=== PATIENT | male | born 1940 | race Hispanic/Latino ===

== ENCOUNTER 2016-08-29 08:42 | Outpatient (CLI) | payer MEDICARE ==
--- NOTE | 2016-08-29 10:05 | Cat Scan Report ---
CT HEAD WITHOUT CONTRAST: 08/29/16 08:42:00 CLINICAL: Headache. History of right cerebellar hemorrhage. TECHNIQUE: 2.5-mm noncontrast scans. COMPARISON:06/26/14 FINDINGS: Stable right cerebellar encephalomalacia and status post right occipital craniotomy. Stable bilateral occipital periventricular white matter hypodensities. The ventricles and sulci are normal for age and unchanged. No new abnormal density. No mass or mass effect. No hemorrhage, edema or extra-axial collection. The sinuses are clear. Normal orbits and soft tissues. No bone lesions. IMPRESSION: 1. No acute change. 2. 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 3. Status post right occipital craniotomy with stable right cerebellar encephalomalacia at site of previous hemorrhage.
--- NOTE | 2016-08-29 11:55 | Cat Scan Report ---
CT NECK WITHOUT CONTRAST: 08/29/16 08:42:00 CLINICAL: Headache. No comparison. TECHNIQUE: Volumetric acquisition and axial 1.25 mm scan reconstructionswithout contrast. Sagittal and coronal reformats were performed. FINDINGS: Normal noncontrast study of the mucosal structures of the nasopharynx, oropharynx, hypopharynx and larynx. No mass or lymphadenopathy of the neck. Small lymph nodes throughout the neck. Normal salivary glands. The parapharyngeal spaces are normal. Normal thyroid. The upper lung robert are clear. Status post midline laminectomy and fusion of the posterior elements with wires from C5-C7. Normal vertebral body alignment. However, the vertebral bodies from C6 and above are more narrow in the AP dimension than the more inferior vertebral bodies so the posterior margins are not alignment at C6-7. C3-4 degenerative disc disease with loss of the disc space and large anterior posterior osteophytes. Moderate left C3-4 neural foraminal stenosis related to the osteophyte. IMPRESSION: Degenerative disc disease at C3-4 and status post laminectomy and cervical fusion from C3-5 through C6-7. Moderate neural foraminal stenosis on the left at C3-4 secondary osteophyte. Normal soft tissues of the neck.
== END 2016-08-29 08:43 | disposition home or self-care (01) ==
LOC: SPVIMAG 08:42
PROVIDERS: ATTEND Internal Medicine Hematology & Oncology
DX: G93.89 Other specified disorders of brain (principal); M48.02 Spinal stenosis, cervical region; M43.22 Fusion of spine, cervical region; M50.31 Other cervical disc degeneration, high cervical region; M25.78 Osteophyte, vertebrae
CPT/HCPCS: 70450; 70490

== ENCOUNTER 2021-09-24 08:36 | Emergency (ER) | payer MEDICARE ==
--- NOTE | 2021-09-24 11:33 | XRay Report ---
LEFT SHOULDER 1 VIEW INDICATION / CLINICAL INFORMATION: Dislocation of left shoulder. COMPARISON: One view of the chest from 04/08/2013. FINDINGS: BONES and JOINT(S): There is anterior dislocation of the glenohumeral joint. No acute displaced fract ure. There is severe left AC joint space loss with osteophyte formation. SOFT TISSUES: No significant abnormality. ADDITIONAL FINDINGS: None. IMPRESSION: 1. Anterior dislocation of the left shoulder. Post reduction radiographs are recommended. 2. Additional findings as above. Signer Name: Ollie Maguire MD Signed: 09/24/2021 11:28 AM Workstation Name: [id number]
[2021-09-24 11:35] LABS: Basophils % (Auto) 0.5 % (0.0-1.8); Eosinophils # (Auto) 0.1 K/mm3 (0.0-0.4); Eosinophils % (Auto) 0.9 % (0.0-4.3); Hematocrit 42.5 % (35.5-45.6); Lymphocytes # (Auto) 1.3 K/mm3 (1.2-5.4); Lymphocytes % (Auto) 16.5 % (13.4-35.0); Mean Corpuscular HGB Conc 33 % (32-34); Mean Corpuscular Volume 101 fl (84-94); Monocytes # (Auto) 0.5 K/mm3 (0.0-0.8); Platelet Count 306 K/mm3 (140-440); Red Blood Count 4.23 M/mm3 (3.65-5.03); Red Cell Distribution Width 13.3 % (13.2-15.2)
[2021-09-24] MEDS ORDERED: MORPHINE 4 MG/1 ML INJ IV ONE (11:41)
[2021-09-24] MEDS ORDERED: ONDANSETRON 4 MG/2 ML INJ IV ONE (11:41)
--- NOTE | 2021-09-24 11:45 | Emergency Department Report ---
HPI - General Chief Complaint: Extremity Injury, Upper Time Seen by Provider: 09/24/21 10:03 - HPI HPI: 2 days prior to arrival the patient lost his balance and fell on an outstretched nondominant left hand and since then has been having moderate sharp left shoulder pain. He is not able to move the shoulder very well and the pain gets worse whenever he tries to move it. He denies any left upper extremity weakness numbness. He also denies any nausea vomiting fever chills focal weakness or any other associated symptoms. The patient has a history of atrial fibrillation does not take any medicines for it. He also has had a prior stroke that left h im with an imbalance problem. ED Past Medical Hx - Past Medical History Hx Hypertension: Yes (2013/ pt denies) Hx GERD: Yes Hx Arthritis: Yes Hx Headaches / Migraines: Yes Additional medical history: Hemorraghic Stroke, Pt was intubated ; atrial fibrillation - Surgical History Past Surgical History?: No Additional Surgical History: Pt had brain surgery - Social History Smoking Status: Never Smoker Substance Use Type: None - Medications Home Medications: Home Medications Medication Instructions Recorded Confirmed Last Taken Type Calcium Carbonate/Vitamin D3 1 tab PO DAILY 11/27/13 06/26/14 06/26/14 History [Centrum Pro Nutrients Tablet] Famotidine 20 mg PO DAILY 11/27/13 06/26/14 06/26/14 History Folic Acid 1 tab PO DAILY 11/27/13 06/26/14 06/26/14 History amLODIPine 10 mg PO DAILY 11/27/13 06/26/14 06/26/14 History Acetaminophen [Acetaminophen TAB] 500 mg PO Q4HR PRN #30 tablet 06/27/14 Unknown Rx Metoprolol [Lopressor TAB] 25 mg PO BID 30 Days #60 tablet 09/24/21 Unknown Rx Naproxen [Naprosyn] 500 mg PO BID 10 Days #20 tablet 09/24/21 Unknown Rx ED Review of Systems ROS: Stated complaint: FALL/LEFT ARM INJURY Other details as noted in HPI Comment: All other systems reviewed and negative Physical Exam - Physical Exam Vital Signs: Vital Signs 09/24/21 09/24/21 09/24/21 09:26 09:46 09:49 Temperature 98.0 F Pulse Rate 125 H 114 H Respiratory 18 Rate Blood Pressure 155/101 Blood Pressure 155/89 [Right] O2 Sat by Pulse 96 98 97 Oximetry 09/24/21 09/24/21 09/24/21 10:00 10:08 10:16 Temperature Pulse Rate Respiratory 18 Rate Blood Pressure 159/93 159/93 Blood Pressure [Right] O2 Sat by Pulse 96 97 96 Oximetry 09/24/21 10:30 Temperature Pulse Rate Respiratory Rate Blood Pressure 150/93 Blood Pressure [Right] O2 Sat by Pulse 96 Oximetry Physical Exam: Physical Exam Constitutional: General: No acute distress. Appearance: No diaphoresis. HENT: Head: Normocephalic. Eyes: Pupils: Pupils are equal, round, and reactive to light. Neck: Musculoskeletal: Normal range of motion. Cardiovascular: Rate and Rhythm: Normal rate and regular rhythm. Pulses: Intact distal pulses. Heart sounds: Normal heart sounds. No murmur. Pulmonary: Effort: No respiratory distress. Breath sounds: No wheezing or rales. Chest: Chest wall: No tenderness. Abdominal: General: There is no distension. Palpations: There is no mass. Tenderness: There is no abdominal tenderness. There is no guarding or rebound. Musculoskeletal: There is a visible deformity on the left shoulder consistent with an anterior left humeral dislocation. He is distally neurovascularly intact Skin: General: Skin is warm and dry. Neurological: Mental Status: Alert and oriented to person, place, and time. Psychiatric: Mood and Affect: Mood and affect normal. Cognition and Memory: Memory normal. Judgment: Judgment normal. ED Course Vital Signs 09/24/21 09/24/21 09/24/21 09:26 09:46 09:49 Temperature 98.0 F Pulse Rate 125 H 114 H Respiratory 18 Rate Blood Pressure 155/101 Blood Pressure 155/89 [Right] O2 Sat by Pulse 96 98 97 Oximetry 09/24/21 09/24/21 09/24/21 10:00 10:08 10:16 Temperature Pulse Rate Respiratory 18 Rate Blood Pressure 159/93 159/93 Blood Pressure [Right] O2 Sat by Pulse 96 97 96 Oximetry 09/24/21 10:30 Temperature Pulse Rate Respiratory Rate Blood Pressure 150/93 Blood Pressure [Right] O2 Sat by Pulse 96 Oximetry - Reevaluation(s) Reevaluation #1: 09/24/21 12:06 EKG done interpreted at 1055 shows a rate of 122, tachycardia. The rhythm is atrial fibrillation with rapid ventricular response. There are some T wave flattening in the leads V5 V6 Reevaluation #2: 09/24/21 14:33 Conscious sedation note: Indication: Moderate sedation for left shoulder anterior dislocation closed reduction. ASA class: 3 Mallampati score: 2 Medical record and history and physical exam done. I personally in a controlled environment with respiratory in the room, suction ready and the patient using 2 L nasal cannula pushed 7 mg of etomidate IV obtaining an adequate level of moderate sedation with no change in the patient's respiratory status. Total intraservice time: 7 minutes excluding the closed reduction. Reevaluation #3: 09/24/21 14:35 I was able to reduce the patient's shoulder without any problems. He says that he has had atrial fibrillation for a long time and does not take any medications. I will put him on an oral beta-kalyn. He declined to stay so he is going to go AGAINST MEDICAL ADVICE. The reason he gave blood because he is got a dog he can take care of. He verbalized understanding of the risk of stroke, permanent disability or any other unforeseen consequences of leaving AGAINST MEDICAL ADVICE. 09/24/21 14:36 09/24/21 14:39 - Orthopedic Joint Reduction Joint #1 Consent Obtained: verbal consent, written consent Time Out Performed: Yes Side: left Joint Reduction Location: shoulder Analgesia: moderate sedation Shoulder Technique Used (if applicable): traction/counter-traction Technique Used: traction/counter-traction Post-Reduction Neuro Exam: intact Post-Reduction Vascular Exam: intact Post Reduction X-Ray Obtained: Yes Post Reduction X-Ray Results: reduced Splint Applied: Yes Patient Tolerated Procedure: well ED Medical Decision Making - Lab Data Result diagrams: 09/24/21 11:11 09/24/21 11:11 Critical care attestation.: If time is entered above; I have spent that time in minutes in the direct care of this critically ill patient, excluding procedure time. ED Disposition Clinical Impression: Anterior dislocation of left shoulder, Atrial fibrillation with rapid ventricular response Disposition: AGAINST MEDICAL ADVICE Is pt being admited?: No Does the pt Need Aspirin: No Condition: Stable Instructions: Shoulder Dislocation, Atrial Fibrillation Prescriptions: Metoprolol [Lopressor TAB] 25 mg PO BID 30 Days #60 tablet Naproxen [Naprosyn] 500 mg PO BID 10 Days #20 tablet Referrals: RAVINDER AGGARWAL MD [Primary Care Provider] - 3-5 Days Print Language: KIS[place]ILI
--- NOTE | 2021-09-24 11:47 | Electrocardiograph Report ---
[facility] Test Date: 2021-09-24 Test Time: 10:55:08 Pat Name: SHAY MCKAY Department: Room: Gender: M Store Sales Consultant: : [id number] Requested By: ETHAN ENRIQUEZ Order Number: [id number] Reading MD: Raheel Camacho Measurements Intervals [place] Rate: 122 P: FL: QRS: 42 QRSD: 82 T: 32 QT: 325 QTc: 463 Interpretive Statements Atrial fibrillation Low voltage, precordial leads No previous ECG available for comparison Electronically Signed On 09-24-2021 11:47:18 EDT by Raheel Camacho
[2021-09-24 11:53] LABS: Alanine Aminotransferase 15 units/L (7-56); Albumin 4.1 g/dL (3.9-5); Blood Urea Nitrogen 14 mg/dL (9-20); Calcium 9.2 mg/dL (8.4-10.2); Hemolysis Index 29
[2021-09-24 11:55] LABS: BUN/Creatinine Ratio 20
[2021-09-24] MEDS ORDERED: ETOMIDATE 20 MG/10 ML INJ IV ONE (12:42)
[2021-09-24] MEDS ORDERED: METOPROLOL TARTRATE 50 MG TAB PO ONE (14:39)
--- NOTE | 2021-09-24 14:53 | XRay Report ---
LEFT SHOULDER 1 VIEW INDICATION / CLINICAL INFORMATION: Status post reduction of left shoulder. COMPARISON: Left shoulder radiograph performed earlier today. FINDINGS: BONES and JOINT(S): The glenohumeral joint has been reduced with expected alignment based on this sin gle submitted image. No new acute findings. SOFT TISSUES: No significant abnormality. ADDITIONAL FINDINGS: None. IMPRESSION: Interval reduction of the left shoulder without new acute findings. Signer Name: Ollie Maguire MD Signed: 09/24/2021 2:49 PM Workstation Name: [id number]
[2021-09-24 17:03] VITALS: BP 163/75
== END 2021-09-24 15:30 | disposition left against medical advice (07) ==
LOC: ED 08:36
DX: S43.084A Other dislocation of right shoulder joint, initial encounter (principal); I48.20 Chronic atrial fibrillation, unspecified; I10 Essential (primary) hypertension; K21.9 Gastro-esophageal reflux disease without esophagitis; M19.90 Unspecified osteoarthritis, unspecified site; G43.909 Migraine, unspecified, not intractable, without status migrainosus; Z88.5 Allergy status to narcotic agent; Z79.899 Other long term (current) drug therapy; W18.39XA Other fall on same level, initial encounter; Y93.89 Activity, other specified; Y92.89 Other specified places as the place of occurrence of the external cause; Y99.8 Other external cause status
CPT/HCPCS: 23650; 36415; 73020; 80053; 84484; 85025; 93005; 96374; 96375; 99285; J2270; J2405; J3490; 99284

== ENCOUNTER 2021-09-29 08:34 | Outpatient (CLI) | payer MEDICARE ==
--- NOTE | 2021-09-29 10:21 | XRay Report ---
AC JOINTS BILATERAL 2 VIEWS INDICATION: DISLOCATED LEFT AC JOINT S43.004A. COMPARISON: Left shoulder films dated 09/24/2021 IMPRESSION: There is normal alignment at both AC joints. No evidence for fracture, dislocation or li gamentous injury. Mild to moderate osteoarthritic changes are identified at both AC joints, slightly more so on the left side. There is normal articulation at the glenohumeral joints. Signer Name: Angel Carlson Jr, MD Signed: 09/29/2021 10:17 AM Workstation Name: [id number]
--- NOTE | 2021-09-29 11:10 | Vascular Lab Report ---
DUPLEX DOPPLER UPPER EXTREMITY VENOUS, LEFT INDICATION / CLINICAL INFORMATION: swelling/pain. TECHNIQUE: Duplex doppler imaging was performed through the veins of the left upper extremity using venous compr ession and other maneuvers. COMPARISON: None available. FINDINGS: LEFT INTERNAL JUGULAR VEIN: Negative. LEFT SUBCLAVIAN VEIN: Negative. LEFT AXILLARY VEIN: Negative. LEFT BRACHIAL VEIN: Negative. LEFT FOREARM VEINS: Negative. LEFT BASILIC VEIN (SUPERFICIAL): Negative. ADDITIONAL FINDINGS: None. IMPRESSION: 1. No sonographic evidence for DVT. Signer Name: Urbano Fay MD Signed: 09/29/2021 11:06 AM Workstation Name: [email or web address] [email or web address]
== END 2021-09-29 08:35 | disposition home or self-care (01) ==
LOC: VAS 08:34
PROVIDERS: ATTEND Internal Medicine Hematology & Oncology
DX: M19.012 Primary osteoarthritis, left shoulder (principal); M19.011 Primary osteoarthritis, right shoulder
CPT/HCPCS: 73050